=== PATIENT | female | born 1975 ===

== ENCOUNTER 2024-10-20 08:30 | Inpatient (IN) | payer OTHER ==
[~2024-10-20] VITALS: Ht 162.6 cm; Wt 83.9 kg
[2024-10-20 09:01] LABS: BASO % 0.5 % (0.1-1.2); EOS # 0.14 (0.04-0.54); EOS % 1.6 % (0.7-7.0); HEMATOCRIT 43.1 % (34.1-44.9); HEMOGLOBIN 14.2 g/dL (11.2-15.7); LYMPH # 2.08 (1.18-3.74); LYMPH % 23.7 % (19.3-53.1); MEAN CORPUSCULAR HEMOGLOBIN 27.7 pg (25.6-32.2); MONO % 6.8 % (4.7-12.5); NEUT # 5.87 (1.56-6.13); NEUT % 67.1 % (34.0-71.1); PLATELET COUNT 291 K/uL (163-369); RED BLOOD COUNT 5.13 M/uL (3.93-5.22); RED CELL DISTRIBUTION WIDTH 13.6 % (11.6-14.4)
[2024-10-20 09:10] VITALS: BP 150/90
[2024-10-20 09:21] VITALS: BP 138/87
[2024-10-20 09:26] LABS: INR 1.1; PARTIAL THROMBOPLASTIN TIME 28.2 SECONDS (22.0-34.0); PROTHROMBIN TIME 11.9 SECONDS (9.0-11.5)
[2024-10-20 10:25] LABS: ALBUMIN 3.9 gm/dL (3.4-5.0); BILIRUBIN TOTAL 0.44 mg/dL (0.3-1.2); CALCIUM 8.8 mg/dL (8.5-10.1); CREATININE SERUM 0.45 mg/dL (0.55-1.02); GFR 147.48; POTASSIUM 5.04 mEq/L (3.5-5.1); TOTAL PROTEIN 6.9 gm/dL (6.4-8.2)
[2024-10-22] MEDS ORDERED: CEFAZOLIN SODIUM 1,000 MG VIAL ONE (08:47)
[2024-10-22] MEDS ORDERED: POVIDONE-IODINE 118 ML BOTT TOP ONE (09:11)
[2024-10-22] MEDS ORDERED: SURGIFLO APPLICATOR 1 EACH APPL TOP ONE (11:43)
[2024-10-22] MEDS ORDERED: HEMOSTATIC MATRIX 1 KIT KIT TOP ONE (11:43)
[2024-10-22] MEDS ORDERED: KETOROLAC TROMETHAMINE 30 MG VIAL IV SCH (12:23)
[2024-10-22] MEDS ORDERED: RINGERS SOLUTION,LACTATED 1,000 ML IV SCH (12:30)
[2024-10-22] MEDS ORDERED: MORPHINE SULFATE 4 MG/ML CARTRIDGE IV PRN (12:30)
[2024-10-22] MEDS ORDERED: KETOROLAC TROMETHAMINE 30 MG VIAL ONE (14:09)
[2024-10-22] MEDS ORDERED: KETOROLAC TROMETHAMINE 30 MG VIAL IV ONE (14:15)
[2024-10-22 16:31] VITALS: BP 150/90
[2024-10-22] MEDS ORDERED: SIMETHICONE 125 MG CAPSULE PO SCH (17:00)
[2024-10-22 20:57] VITALS: BP 150/80
[2024-10-22] MEDS ORDERED: ONDANSETRON HCL 2 MG/ML VIAL IV SCH (21:00)
[2024-10-23] VITALS: BP 140/80
[2024-10-23 06:53] LABS: BASO % 0.3 % (0.1-1.2); EOS # 0.09 (0.04-0.54); EOS % 0.8 % (0.7-7.0); HEMATOCRIT 38.3 % (34.1-44.9); HEMOGLOBIN 12.6 g/dL (11.2-15.7); LYMPH % 20.3 % (19.3-53.1); MEAN CORPUSCULAR HEMOGLOBIN 27.8 pg (25.6-32.2); MONO % 8.8 % (4.7-12.5); NEUT # 7.87 (1.56-6.13); NEUT % 69.5 % (34.0-71.1); PLATELET COUNT 245 K/uL (163-369); RED BLOOD COUNT 4.53 M/uL (3.93-5.22)
[2024-10-23 07:59] LABS: ALBUMIN 3.3 gm/dL (3.4-5.0); CALCIUM 8.3 mg/dL (8.5-10.1); CREATININE SERUM 0.54 mg/dL (0.55-1.02); GFR 119.5; GLOBULINA 2.7 G/DL (2.4-3.5); POTASSIUM 3.93 mEq/L (3.5-5.1)
[2024-10-23 08:23] VITALS: BP 136/88
[2024-10-23] MEDS ORDERED: ENOXAPARIN SODIUM 40 MG/0.4 ML SYRINGE SUBCUTANEO SCH (09:00)
[2024-10-23] MEDS ORDERED: BISACODYL 5 MG TABLET.EC PO SCH (09:00)
== END 2024-10-23 09:25 | disposition home or self-care (01) | DRG 743 ==
LOC: OB/GYN 10-22 06:31 → O/R 10-22 06:31 → SURH 10-22 07:00 → OB/GYN 10-22 13:15
PROVIDERS: Obstetrics & Gynecology; ADMIT Obstetrics & Gynecology; ATTEND Obstetrics & Gynecology
PROC: 0UT74ZZ Resection of Bilateral Fallopian Tubes, Percutaneous Endoscopic Approach (ICD-10-PCS; 2024-10-22)
PROC: 0UT94ZZ Resection of Uterus, Percutaneous Endoscopic Approach (ICD-10-PCS; principal; 2024-10-22 07:00)
DX: N80.03 Adenomyosis of the uterus (principal); N81.4 Uterovaginal prolapse, unspecified